=== PATIENT | female | born 1965 | race Caucasian/White ===

== ENCOUNTER 2018-03-26 21:22 | Emergency (ER) | payer BC ==
[~2018-03-26] VITALS: Ht 162.6 cm; Wt 92.1 kg
[2018-03-26] MEDS ORDERED: HYDROCODONE/APAP 5MG-325MG TAB PO ONE (22:00)
[2018-03-26] MEDS ORDERED: TRIMETHOPRIM/SULFAMETHOXAZOLE 160-800 MG TAB PO ONE (22:00)
[2018-03-26] MEDS ORDERED: TETANUS/DIPHTHERIA TOX ADULT 0.5 ML SYR IM ONE (22:00)
[2018-03-26] MEDS ORDERED: BACITRACIN ZINC 0.9GM TP ONE (22:45)
[2018-03-26 22:47] VITALS: BP 140/78
== END 2018-03-26 22:51 | disposition home or self-care (01) ==
LOC: FSED 21:22
DX: S83.421A Sprain of lateral collateral ligament of right knee, initial encounter (principal); S83.411A Sprain of medial collateral ligament of right knee, initial encounter; S80.211A Abrasion, right knee, initial encounter; W01.198A Fall on same level from slipping, tripping and stumbling with subsequent striking against other object, initial encounter; Y93.01 Activity, walking, marching and hiking; Y92.830 Public park as the place of occurrence of the external cause; I10 Essential (primary) hypertension
CPT/HCPCS: 90471; 90714; 96372; 99283